=== PATIENT | male | born 1975 | race Caucasian/White ===

== ENCOUNTER 2019-06-24 15:04 | Inpatient (IN) ==
[2019-06-24] MEDS ORDERED: Ipratropium/Albuterol Neb 3 ML IH ONE (15:21)
[2019-06-24] MEDS ORDERED: methylPREDNISolone 125 MG/2 ML VIAL IVP ONE (15:21)
[2019-06-24] MEDS: 0.9 % Sodium Chloride 1,000 ML IVC SCH ×4 (15:44→19:59)
[2019-06-24 15:58] LABS: Basophils # 0.1 K/mcL (0.0-0.2); Basophils % 1.3 %; Eosinophils % 0.5 %; Hematocrit 46.7 % (37.5-50.1); Immature Granulocytes % 2.8 % (0-4); Lymphocytes # 0.8 K/mcL (0.6-4.6); Lymphocytes % 13.1 %; Mean Corpuscular HGB Conc 30.4 g/dL (31.6-35.5); Mean Corpuscular Hemoglobin 28.8 pg (28.0-33.3); Mean Corpuscular Volume 94.7 fL (83.0-100.0); Mean Platelet Volume 9.5 fL (9.4-12.4); Monocytes # 0.4 K/mcL (0.0-1.3); Neutrophils # 4.6 K/mcL (1.6-8.9); Platelet Count 190 K/mcL (140-400); Red Blood Count 4.93 M/mcL (4.19-5.50); Segmented Neutrophils % 75.3 %; White Blood Count 6.2 K/mcL (4.3-11.1)
[2019-06-24 15:59] LABS: Hemoglobin 14.2 g/dL (12.9-16.9)
[2019-06-24 16:02] LABS: VBG HCO3 15 mEq/L (21-27); VBG PCO2 48 mmHg (41-51); VBG PH 7.11 pH Units (7.32-7.42); VBG PO2 46 mmHg (25-50)
[2019-06-24] MEDS ORDERED: Isovue-370 500 ML BOTTLE IVP ONE (16:04)
[2019-06-24 16:18] LABS: Magnesium 2.4 mg/dL (1.6-2.6)
[2019-06-24 16:20] LABS: Troponin I < 0.03 ng/mL (< 0.04)
[2019-06-24 17:07] LABS: BUN/Creatinine Ratio 8 (6-26); Blood Urea Nitrogen 16 mg/dL (6-20); Calcium 10.2 mg/dL (8.6-10.3); Carbon Dioxide 13 mEq/L (23-29); Chloride 91 mEq/L (98-107); Glucose 700 mg/dL (70-105); Osmolality,Calculated 309 (280-300); Potassium 6.9 mEq/L (3.5-5.1); Sodium 132 mEq/L (136-145); eGFR For African Americans 42 (> 60); eGFR For Non-African Americans 34 (> 60)
[2019-06-24] MEDS ORDERED: D5% in 0.45% NACL w KCl 20 MEQ/1,000 ML MLS IVC PRN (17:14)
[2019-06-24] MEDS ORDERED: *HR* Dextrose 50 % in Water (Syg) 50 ML SYRINGE IVP PRN ×2 (17:14→20:59)
[2019-06-24] MEDS ORDERED: Insulin Human Regular 100 UNIT in 0.9 % Sodium Chloride 100 ML IVC SCH (17:15)
[2019-06-24] MEDS ORDERED: cefTRIAXone 1,000 MG in Water for inj. (sterile) 10 ML IVP ONE (17:47)
[2019-06-24] MEDS ORDERED: Azithromycin 500 MG in D5% in Water 250 ML IVPB ONE (17:47)
--- NOTE | 2019-06-24 18:06 | Emergency Department Note ---
Disposition Clinical Impression: Septic shock DKA (diabetic ketoacidoses) Qualifiers: Diabetes mellitus type: other specified (including ANDREW) Diabetes mellitus complication detail: without coma Qualified Code(s): E13.10 - Other specified diabetes mellitus with ketoacidosis without coma Disposition: Admitted As Inpatient Condition: Good Time of Disposition: 17:30 General Adult HPI - General Chief complaint: ED Altered Mental Status Stated complaint: Hypergylcemia Time Seen by Provider: 06/24/19 15:06 Source: EMS Limitations: altered mental status Nursing Notes Reviewed: Yes Vital Signs Reviewed: Yes - History of Present Illness Pain Scale: 0 - Related Data Home Medications Medication Instructions Recorded Confirmed Acetaminophen [Non-Aspirin] 650 mg PO Q4H PRN 03/12/19 03/12/19 BuPROPion SR (12 HR) [Wellbutrin 150 mg PO TID 03/12/19 03/12/19 SR] DULoxetine [Cymbalta] 30 mg PO DAILY 03/12/19 03/12/19 Enoxaparin [Lovenox] 40 mg SQ DAILY 03/12/19 03/12/19 Loperamide [Imodium] 2 mg PO Q4HR PRN 03/12/19 03/12/19 Magnesium Hydroxide [Milk of 2,400 mg PO DAILY PRN 03/12/19 03/12/19 Magnesia] hydrOXYzine HCl [Hydroxyzine HCl] 25 mg PO Q8H PRN 03/12/19 03/12/19 Previous Rx's Medication Instructions Recorded Daptomycin [Cubicin Rf] 500 mg IV DAILY #20 vial 04/10/19 Insulin DETEMIR [Levemir] 15 unit SQ QAM [id number] 04/10/19 Insulin LISPRO [HumaLOG] 10 units SQ Q4HR vial 04/10/19 Ipratropium/Albuterol Neb [Duoneb] 3 ml IH [id number] PRN inhsol 04/10/19 Lactulose 10 gm GTUBE BID udc 04/10/19 Lansoprazole [Prevacid] 30 mg GTUBE QAM capsule. 04/10/19 Metoclopramide [Reglan] 5 mg GTUBE Q6HR ud.liq 04/10/19 Ondansetron [Zofran] 4 mg IVP Q6H PRN vial 04/10/19 Sennosides/Docusate Sodium [Senna 1 each GTUBE BID tablet 04/10/19 Plus] Allergies Allergy/AdvReac Type Severity Reaction Status Date / Time No Known Allergies Allergy Verified 03/11/19 19:43 Past Medical History - Past Medical History Medical history: Reports: diabetes, other Surgical history: Reports: other (Lower extremity abscess and prolonged infection with delayed closure and split thickness skin graft) Psychiatric history: Reports: anxiety, depression - Social History Smoking Status: Current every day smoker Smokeless Tobacco Status: No Alcohol use: Reports: none Drug use: 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, methamphetamine, IV Drug Use, prescription drug abu se Physical Exam - General Limitations: altered mental status General appearance: lethargic Course Vital Signs Temperature 98.7 F 06/24/19 15:17 Pulse Rate 112 06/24/19 15:17 Respiratory Rate 13 06/24/19 15:17 Blood Pressure 79/50 06/24/19 15:17 O2 Sat by Pulse Oximetry 87 06/24/19 15:17 Temperature 98.7 F 06/24/19 15:17 Pulse Rate 107 06/24/19 19:32 Respiratory Rate 14 06/24/19 19:32 Blood Pressure 120/86 06/24/19 19:32 O2 Sat by Pulse Oximetry 97 06/24/19 19:32 Oxygen Delivery Oxygen Delivery Room Air Medical Decision Making - MDM Narrative Medical decision making narrative: 57-year-old male presents to the emergency department with concern for hyperglycemia. Patient has elevated glucose. He is in diabetic ketoacidosis. pH 7.11. Patient received 3 L of fluids here in the emergency department. Did have an elevated potassium of 6.9, but no evidence of peaked T waves. Patient was given DuoNeb treatments as well as steroids as he is a possible COPD patient. He had evidence of pneumonia on a CT angiogram of the chest. Patient was given Rocephin and azithromycin for this. Patient's initial lactic acid was 5.8. Repeat lactic acid pending at time of admission. Blood Cultures were obtained. Patient was started on insulin drip. Patient's kidney function about his baseline. Dr. Acosta requested that we continue maintenance fluids at 250 mL per hour. This was initiated. Repeat potassium was much less as patient went to the floor. Anion gap was 24. Chest X-Ray 06/24/19 15:10 IMPRESSION: No acute process. D/ / Paulie Hurst MD / Paulie Hurst MD Interpreting Provider: Paulie Hurst MD Chest CTA 06/24/19 16:04 IMPRESSION: 1. No evidence of acute pulmonary embolism or acute aortic disease. 2. Suggestion of patchy infiltrates in the right upper lobe consistent with pneumonia. 3. Bronchiectatic changes worse in the left lower lobe as well as some nodularity likely related to bronchiectasis. 4. Changes of hepatic steatosis and liver cirrhosis. D/ / 06/24/2019 17:33:40 Gwen Chaves MD / ninortori Interpreting Provider: Gwen Chaves MD - Lab Data Result diagrams: 06/24/19 15:10 06/24/19 18:16 Lab Results 06/24/19 06/24/19 06/24/19 Range/Units 15:10 15:10 15:10 WBC 6.2 (4.3-11.1) K/mcL RBC 4.93 (4.19-5.50) M/mcL Hgb 14.2 D (12.9-16.9) g/dL Hct 46.7 (37.5-50.1) % MCV 94.7 (83.0-100.0) fL MCH 28.8 (28.0-33.3) pg MCHC 30.4 L (31.6-35.5) g/dL RDW 16.0 H (11.5-14.5) % Plt Count 190 D (140-400) K/mcL MPV 9.5 (9.4-12.4) fL Immature Gran % 2.8 (0-4) % Seg Neutrophils % 75.3 % Lymphocytes % 13.1 % Monocytes % 7.0 % Eosinophils % 0.5 % Basophils % 1.3 % Neutrophils # 4.6 (1.6-8.9) K/mcL Lymphocytes # 0.8 (0.6-4.6) K/mcL Monocytes # 0.4 (0.0-1.3) K/mcL Eosinophils # 0.0 (0.0-0.6) K/mcL Basophils # 0.1 (0.0-0.2) K/mcL VBG pH (7.32-7.42) pH Units VBG pCO2 (41-51) mmHg VBG pO2 (25-50) mmHg VBG HCO3 (21-27) mEq/L Sodium 132 L (136-145) mEq/L Potassium 6.9 H* (3.5-5.1) mEq/L Chloride 91 L (98-107) mEq/L Carbon Dioxide 13 L (23-29) mEq/L BUN 16 (6-20) mg/dL Creatinine 2.10 H (0.70-1.30) mg/dL Est GFR ( Amer) 42 L (> 60) Est GFR (Non-Af Amer) 34 L (> 60) BUN/Creatinine Ratio 8 (6-26) Glucose 700 H* (70-105) mg/dL POC Glucose (70-99) mg/dL Calculated Osmolality 309 H (280-300) Lactic Acid (0.5-2.2) mmol/L Calcium 10.2 (8.6-10.3) mg/dL Magnesium 2.4 (1.6-2.6) mg/dL Troponin I < 0.03 (< 0.04) ng/mL Beta-Hydroxybutyric Acd > 2.00 H (0.02-0.27) mmol/L Person Notif of Crit 06/24/19 06/24/19 06/24/19 Range/Units 15:18 15:20 15:42 WBC (4.3-11.1) K/mcL RBC (4.19-5.50) M/mcL Hgb (12.9-16.9) g/dL Hct (37.5-50.1) % MCV (83.0-100.0) fL MCH (28.0-33.3) pg MCHC (31.6-35.5) g/dL RDW (11.5-14.5) % Plt Count (140-400) K/mcL MPV (9.4-12.4) fL Immature Gran % (0-4) % Seg Neutrophils % % Lymphocytes % % Monocytes % % Eosinophils % % Basophils % % Neutrophils # (1.6-8.9) K/mcL Lymphocytes # (0.6-4.6) K/mcL Monocytes # (0.0-1.3) K/mcL Eosinophils # (0.0-0.6) K/mcL Basophils # (0.0-0.2) K/mcL VBG pH (7.32-7.42) pH Units VBG pCO2 (41-51) mmHg VBG pO2 (25-50) mmHg VBG HCO3 (21-27) mEq/L Sodium (136-145) mEq/L Potassium (3.5-5.1) mEq/L Chloride (98-107) mEq/L Carbon Dioxide (23-29) mEq/L BUN (6-20) mg/dL Creatinine (0.70-1.30) mg/dL Est GFR ( Amer) (> 60) Est GFR (Non-Af Amer) (> 60) BUN/Creatinine Ratio (6-26) Glucose (70-105) mg/dL POC Glucose > 600 H* 596 H* (70-99) mg/dL Calculated Osmolality (280-300) Lactic Acid 5.8 H* (0.5-2.2) mmol/L Calcium (8.6-10.3) mg/dL Magnesium (1.6-2.6) mg/dL Troponin I (< 0.04) ng/mL Beta-Hydroxybutyric Acd (0.02-0.27) mmol/L Person Notif of Crit 06/24/19 06/24/19 06/24/19 Range/Units 15:56 18:16 19:20 WBC (4.3-11.1) K/mcL RBC (4.19-5.50) M/mcL Hgb (12.9-16.9) g/dL Hct (37.5-50.1) % MCV (83.0-100.0) fL MCH (28.0-33.3) pg MCHC (31.6-35.5) g/dL RDW (11.5-14.5) % Plt Count (140-400) K/mcL MPV (9.4-12.4) fL Immature Gran % (0-4) % Seg Neutrophils % % Lymphocytes % % Monocytes % % Eosinophils % % Basophils % % Neutrophils # (1.6-8.9) K/mcL Lymphocytes # (0.6-4.6) K/mcL Monocytes # (0.0-1.3) K/mcL Eosinophils # (0.0-0.6) K/mcL Basophils # (0.0-0.2) K/mcL VBG pH 7.11 L* (7.32-7.42) pH Units VBG pCO2 48 (41-51) mmHg VBG pO2 46 (25-50) mmHg VBG HCO3 15 L (21-27) mEq/L Sodium 134 L (136-145) mEq/L Potassium 5.7 H (3.5-5.1) mEq/L Chloride 97 L (98-107) mEq/L Carbon Dioxide 13 L (23-29) mEq/L BUN 19 (6-20) mg/dL Creatinine 1.98 H (0.70-1.30) mg/dL Est GFR ( Amer) 45 L (> 60) Est GFR (Non-Af Amer) 37 L (> 60) BUN/Creatinine Ratio 10 (6-26) Glucose 701 H* (70-105) mg/dL POC Glucose 494 H* (70-99) mg/dL Calculated Osmolality 314 H (280-300) Lactic Acid (0.5-2.2) mmol/L Calcium 8.8 (8.6-10.3) mg/dL Magnesium (1.6-2.6) mg/dL Troponin I (< 0.04) ng/mL Beta-Hydroxybutyric Acd (0.02-0.27) mmol/L Person Notif of Dianelys CHATO MELARACLIFFORD 06/24/19 Range/Units 19:22 WBC (4.3-11.1) K/mcL RBC (4.19-5.50) M/mcL Hgb (12.9-16.9) g/dL Hct (37.5-50.1) % MCV (83.0-100.0) fL MCH (28.0-33.3) pg MCHC (31.6-35.5) g/dL RDW (11.5-14.5) % Plt Count (140-400) K/mcL MPV (9.4-12.4) fL Immature Gran % (0-4) % Seg Neutrophils % % Lymphocytes % % Monocytes % % Eosinophils % % Basophils % % Neutrophils # (1.6-8.9) K/mcL Lymphocytes # (0.6-4.6) K/mcL Monocytes # (0.0-1.3) K/mcL Eosinophils # (0.0-0.6) K/mcL Basophils # (0.0-0.2) K/mcL VBG pH (7.32-7.42) pH Units VBG pCO2 (41-51) mmHg VBG pO2 (25-50) mmHg VBG HCO3 (21-27) mEq/L Sodium (136-145) mEq/L Potassium (3.5-5.1) mEq/L Chloride (98-107) mEq/L Carbon Dioxide (23-29) mEq/L BUN (6-20) mg/dL Creatinine (0.70-1.30) mg/dL Est GFR ( Amer) (> 60) Est GFR (Non-Af Amer) (> 60) BUN/Creatinine Ratio (6-26) Glucose (70-105) mg/dL POC Glucose 540 H* (70-99) mg/dL Calculated Osmolality (280-300) Lactic Acid (0.5-2.2) mmol/L Calcium (8.6-10.3) mg/dL Magnesium (1.6-2.6) mg/dL Troponin I (< 0.04) ng/mL Beta-Hydroxybutyric Acd (0.02-0.27) mmol/L Person Notif of Crit
[2019-06-24] MEDS ORDERED: Azithromycin 250 MG TABLET PO ONE (18:28)
--- NOTE | 2019-06-24 18:37 | Emergency Department Note ---
Disposition Clinical Impression: Septic shock DKA (diabetic ketoacidoses) Qualifiers: Diabetes mellitus type: other specified (including ANDREW) Diabetes mellitus complication detail: without coma Qualified Code(s): E13.10 - Other specified diabetes mellitus with ketoacidosis without coma Disposition: Admitted As Inpatient Condition: Good Referrals: NONE,PCP [Primary Care Provider] - Forms: ED Satisfaction Letter Time of Disposition: 18:38 General Adult HPI - General Chief complaint: ED Altered Mental Status Stated complaint: Hypergylcemia Time Seen by Provider: 06/24/19 15:06 Source: EMS Limitations: altered mental status - History of Present Illness Pain Scale: 0 - Related Data Home Medications Medication Instructions Recorded Confirmed Acetaminophen [Non-Aspirin] 650 mg PO Q4H PRN 03/12/19 03/12/19 BuPROPion SR (12 HR) [Wellbutrin 150 mg PO TID 03/12/19 03/12/19 SR] DULoxetine [Cymbalta] 30 mg PO DAILY 03/12/19 03/12/19 Enoxaparin [Lovenox] 40 mg SQ DAILY 03/12/19 03/12/19 Loperamide [Imodium] 2 mg PO Q4HR PRN 03/12/19 03/12/19 Magnesium Hydroxide [Milk of 2,400 mg PO DAILY PRN 03/12/19 03/12/19 Magnesia] hydrOXYzine HCl [Hydroxyzine HCl] 25 mg PO Q8H PRN 03/12/19 03/12/19 Previous Rx's Medication Instructions Recorded Daptomycin [Cubicin Rf] 500 mg IV DAILY #20 vial 04/10/19 Insulin DETEMIR [Levemir] 15 unit SQ QAM [id number] 04/10/19 Insulin LISPRO [HumaLOG] 10 units SQ Q4HR vial 04/10/19 Ipratropium/Albuterol Neb [Duoneb] 3 ml IH [id number] PRN inhsol 04/10/19 Lactulose 10 gm GTUBE BID udc 04/10/19 Lansoprazole [Prevacid] 30 mg GTUBE QAM capsule. 04/10/19 Metoclopramide [Reglan] 5 mg GTUBE Q6HR ud.liq 04/10/19 Ondansetron [Zofran] 4 mg IVP Q6H PRN vial 04/10/19 Sennosides/Docusate Sodium [Senna 1 each GTUBE BID tablet 04/10/19 Plus] Allergies Allergy/AdvReac Type Severity Reaction Status Date / Time No Known Allergies Allergy Verified 03/11/19 19:43 Past Medical History - Past Medical History Medical history: Reports: diabetes, other Surgical history: Reports: other (Lower extremity abscess and prolonged infection with delayed closure and split thickness skin graft) Psychiatric history: Reports: anxiety, depression - Social History Smoking Status: Current every day smoker Smokeless Tobacco Status: No Alcohol use: Reports: none Drug use: 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, methamphetamine, IV Drug Use, prescription drug abuse Physical Exam - General Limitations: altered mental status General appearance: lethargic Course Vital Signs Temperature 98.7 F 06/24/19 15:17 Pulse Rate 112 06/24/19 15:17 Respiratory Rate 13 06/24/19 15:17 Blood Pressure 79/50 06/24/19 15:17 O2 Sat by Pulse Oximetry 87 06/24/19 15:17 Temperature 98.7 F 06/24/19 15:17 Pulse Rate 118 06/24/19 16:31 Respiratory Rate 12 06/24/19 16:31 Blood Pressure 94/59 06/24/19 16:31 O2 Sat by Pulse Oximetry 99 06/24/19 16:31 Oxygen Delivery Oxygen Delivery Nasal Cannula Medical Decision Making - Lab Data Result diagrams: 06/24/19 15:10 06/24/19 15:10 Lab Results 06/24/19 06/24/19 06/24/19 Range/Units 15:10 15:10 15:10 WBC 6.2 (4.3-11.1) K/mcL RBC 4.93 (4.19-5.50) M/mcL Hgb 14.2 D (12.9-16.9) g/dL Hct 46.7 (37.5-50.1) % MCV 94.7 (83.0-100.0) fL MCH 28.8 (28.0-33.3) pg MCHC 30.4 L (31.6-35.5) g/dL RDW 16.0 H (11.5-14.5) % Plt Count 190 D (140-400) K/mcL MPV 9.5 (9.4-12.4) fL Immature Gran % 2.8 (0-4) % Seg Neutrophils % 75.3 % Lymphocytes % 13.1 % Monocytes % 7.0 % Eosinophils % 0.5 % Basophils % 1.3 % Neutrophils # 4.6 (1.6-8.9) K/mcL Lymphocytes # 0.8 (0.6-4.6) K/mcL Monocytes # 0.4 (0.0-1.3) K/mcL Eosinophils # 0.0 (0.0-0.6) K/mcL Basophils # 0.1 (0.0-0.2) K/mcL VBG pH (7.32-7.42) pH Units VBG pCO2 (41-51) mmHg VBG pO2 (25-50) mmHg VBG HCO3 (21-27) mEq/L Sodium 132 L (136-145) mEq/L Potassium 6.9 H* (3.5-5.1) mEq/L Chloride 91 L (98-107) mEq/L Carbon Dioxide 13 L (23-29) mEq/L BUN 16 (6-20) mg/dL Creatinine 2.10 H (0.70-1.30) mg/dL Est GFR ( Amer) 42 L (> 60) Est GFR (Non-Af Amer) 34 L (> 60) BUN/Creatinine Ratio 8 (6-26) Glucose 700 H* (70-105) mg/dL POC Glucose (70-99) mg/dL Calculated Osmolality 309 H (280-300) Lactic Acid (0.5-2.2) mmol/L Calcium 10.2 (8.6-10.3) mg/dL Magnesium 2.4 (1.6-2.6) mg/dL Troponin I < 0.03 (< 0.04) ng/mL Beta-Hydroxybutyric Acd > 2.00 H (0.02-0.27) mmol/L Person Notif of Crit 06/24/19 06/24/19 06/24/19 Range/Units 15:18 15:20 15:42 WBC (4.3-11.1) K/mcL RBC (4.19-5.50) M/mcL Hgb (12.9-16.9) g/dL Hct (37.5-50.1) % MCV (83.0-100.0) fL MCH (28.0-33.3) pg MCHC (31.6-35.5) g/dL RDW (11.5-14.5) % Plt Count (140-400) K/mcL MPV (9.4-12.4) fL Immature Gran % (0-4) % Seg Neutrophils % % Lymphocytes % % Monocytes % % Eosinophils % % Basophils % % Neutrophils # (1.6-8.9) K/mcL Lymphocytes # (0.6-4.6) K/mcL Monocytes # (0.0-1.3) K/mcL Eosinophils # (0.0-0.6) K/mcL Basophils # (0.0-0.2) K/mcL VBG pH (7.32-7.42) pH Units VBG pCO2 (41-51) mmHg VBG pO2 (25-50) mmHg VBG HCO3 (21-27) mEq/L Sodium (136-145) mEq/L Potassium (3.5-5.1) mEq/L Chloride (98-107) mEq/L Carbon Dioxide (23-29) mEq/L BUN (6-20) mg/dL Creatinine (0.70-1.30) mg/dL Est GFR ( Amer) (> 60) Est GFR (Non-Af Amer) (> 60) BUN/Creatinine Ratio (6-26) Glucose (70-105) mg/dL POC Glucose > 600 H* 596 H* (70-99) mg/dL Calculated Osmolality (280-300) Lactic Acid 5.8 H* (0.5-2.2) mmol/L Calcium (8.6-10.3) mg/dL Magnesium (1.6-2.6) mg/dL Troponin I (< 0.04) ng/mL Beta-Hydroxybutyric Acd (0.02-0.27) mmol/L [facility] 06/24/19 Range/Units 15:56 WBC (4.3-11.1) K/mcL RBC (4.19-5.50) M/mcL Hgb (12.9-16.9) g/dL Hct (37.5-50.1) % MCV (83.0-100.0) fL MCH (28.0-33.3) pg MCHC (31.6-35.5) g/dL RDW (11.5-14.5) % Plt Count (140-400) K/mcL MPV (9.4-12.4) fL Immature Gran % (0-4) % Seg Neutrophils % % Lymphocytes % % Monocytes % % Eosinophils % % Basophils % % Neutrophils # (1.6-8.9) K/mcL Lymphocytes # (0.6-4.6) K/mcL Monocytes # (0.0-1.3) K/mcL Eosinophils # (0.0-0.6) K/mcL Basophils # (0.0-0.2) K/mcL VBG pH 7.11 L* (7.32-7.42) pH Units VBG pCO2 48 (41-51) mmHg VBG pO2 46 (25-50) mmHg VBG HCO3 15 L (21-27) mEq/L Sodium (136-145) mEq/L Potassium (3.5-5.1) mEq/L Chloride (98-107) mEq/L Carbon Dioxide (23-29) mEq/L BUN (6-20) mg/dL Creatinine (0.70-1.30) mg/dL Est GFR ( Amer) (> 60) Est GFR (Non-Af Amer) (> 60) BUN/Creatinine Ratio (6-26) Glucose (70-105) mg/dL POC Glucose (70-99) mg/dL Calculated Osmolality (280-300) Lactic Acid (0.5-2.2) mmol/L Calcium (8.6-10.3) mg/dL Magnesium (1.6-2.6) mg/dL Troponin I (< 0.04) ng/mL Beta-Hydroxybutyric Acd (0.02-0.27) mmol/L Person Notif of Dianelys CLIFFORD Attestation Statement - Attestation Attestation: I reviewed the residents documentation and agree with the residents assessment and plan of care. I have personally had face to face time with the patient. (Brief History, Brief Exam, and MDM) I personally supervised and was present for the weathers/critical portions of the following procedures completed by the resident: EKG 43 year old male presents to the ED with complaints of hyperglycemia and has a history of DKA. Rajinder appers to be in DKA again today likely secondary to sepsis with pneumonia. Patinet is hyperkalemic likely secondary to be in DKA. We will be trearting him with albuterol, insulin drip and IVF. Patient will have his potassium rechecked. He does not have any EKG changes secondary to his hyperkalmiea. Rajinder will be admitted to ICU.
[2019-06-24 19:10] LABS: Calcium 8.8 mg/dL (8.6-10.3); Potassium 5.7 mEq/L (3.5-5.1)
[2019-06-24] MEDS ORDERED: Insulin Regular, Human 100 UNIT/ML IV PRN (20:59)
[2019-06-24] MEDS ORDERED: Naloxone 0.4 MG/ML INJ IVP PRN (20:59)
[2019-06-24] MEDS ORDERED: Ondansetron 4 MG/2 ML VIAL IVP PRN (21:07)
[2019-06-24] MEDS: 0.45 % Sodium Chloride w/KCl 20 MEQ/1,000 ML MLS IVC SCH (21:13)
[2019-06-24] MEDS ORDERED: Albuterol 2.5 MG/3 ML NEBULIZER IH PRN (21:19)
[2019-06-24] MEDS ORDERED: Vancomycin (wt based) 1,000 MG VIAL IVPB SCH (22:00)
[2019-06-24 22:06] LABS: Calcium 8.6 mg/dL (8.6-10.3); Magnesium 1.9 mg/dL (1.6-2.6); Phosphorous 4.2 mg/dL (2.7-4.5); Potassium 4.4 mEq/L (3.5-5.1)
[2019-06-24 22:21] LABS: Bilirubin,Urine Small (Negative); Blood,Urine Negative (Negative); Clarity,Urine Clear (Clear); Color,Urine Yellow (Yellow); Glucose,Urine (UA) >=1000 mg/dL (Normal); Ketones,Urine 40 mg/dL (Negative); Leukocyte Esterase,Urine Negative (Negative); Nitrite,Urine Negative (Negative); Protein,Urine 30 mg/dL (Neg-Trace); Specific Gravity,Urine > 1.030 (1.010-1.025)
[2019-06-24] MEDS: *HR* Heparin 5,000 UNIT/ML VIAL SQ SCH (22:22)
[2019-06-24 22:25] LABS: Bacteria,Urine None Seen per hpf (None-Few); Hyaline Casts,Urine None Seen per lpf (None-Few); RBC,Urine 0-3 per hpf (0-3); Squamous Epithelial Cell,Urine Few per lpf (None-Few); WBC,Urine 0-3 per hpf (0-3)
[2019-06-24 22:26] LABS: Prothrombin Time 11.2 Seconds (9.4-12.1)
[2019-06-24 22:28] LABS: Activated Partial Thrombo Time 27.5 Seconds (26.0-36.0)
[2019-06-24 22:30] LABS: Amphetamine Screen,Urine Negative ng/mL (Cutoff=1000); Barbiturate Screen,Urine Negative ng/mL (Cutoff=200); Benzodiazepines Screen,Urine Negative ng/mL (Cutoff=200); Cannabinoid Screen,Urine Negative ng/mL (Cutoff = 50); Cocaine Screen,Urine Negative ng/mL (Cutoff= 300); Opiate Screen,Urine Negative ng/mL (Cutoff=300); Phencyclidine Screen,Urine Negative ng/mL (Cutoff=25)
[2019-06-24] MEDS: 0.45 % Sodium Chloride w/KCl 20 MEQ/1,000 ML MLS IVC PRN (22:40)
[2019-06-24] MEDS: Piperacillin/Tazobactam 3.375 GM in 0.9 % Sodium Chloride Mini Bag 100 ML IVPB SCH (23:16)
[2019-06-24] MEDS: Ipratropium/Albuterol Neb 3 ML IH SCH (23:54)
--- NOTE | 2019-06-25 00:33 | Internal Med History&Physical ---
Date of Encounter: 06/24/19 Time of Encounter: 20:30 Internal Medicine - H&P: HPI Chief complaint: high glucose; weakness; depressed LOC Admitted From: Emergency Dept Plans for Post Hospital Care: Home History of present illness: Mr. Anand is a 43 year old male who presents to the ER tonight with complaints of high glucose, somnolence, nausea, and vomiting. He was found to have evidence of DKA in the ER. He was fluid resuscitated and started on insulin drip. He was then admitted to hospitalist service. He did have CTA imaging of his chest which revealed no PE but he did have significant findings of right upper lobe pneumonia. He was started on antibiotics and had blood cultures drawn. Of note, his initial lactate was 5.8. Upon my assessment of the patient, patient appears ill and somnolent. He is easily arousable and protecting his airway. He is unable to provide much history other than protracted nausea, vomiting, and "pain all over". Most of the information is obtained from my discussions with the ER staff and old records. Past Med Surg Social Fam HX - Past Medical History Source: old records reviewed, other (ER notes/discussions) Medical history: diabetes, other Additional medical history: osteomyelitis. dysphagia Psychiatric history: anxiety, depression - Past Surgical History Surgical History: other (Lower extremity abscess and prolonged infection with delayed closure and split thickness skin graft) Additional surgical history: surgical intervention for abscesses,feeding tube - Social History Smoking Status: Current every day smoker Smokeless Tobacco Status: No Alcohol use: none Drug use: opiates, methamphetamine, IV Drug Use, prescription drug abuse - Family History Mother History Unknown: Yes Father History Unknown: Yes Internal Medicine - H&P: Meds Acetaminophen [Non-Aspirin] 650 mg PO Q4H PRN 03/12/19 [History] BuPROPion SR (12 HR) [Wellbutrin SR] 150 mg PO TID 03/12/19 [History] DULoxetine [Cymbalta] 30 mg PO DAILY 03/12/19 [History] Enoxaparin [Lovenox] 40 mg SQ DAILY 03/12/19 [History] Loperamide [Imodium] 2 mg PO Q4HR PRN 03/12/19 [History] Magnesium Hydroxide [Milk of Magnesia] 2,400 mg PO DAILY PRN 03/12/19 [History] hydrOXYzine HCl [Hydroxyzine HCl] 25 mg PO Q8H PRN 03/12/19 [History] Daptomycin [Cubicin Rf] 500 mg IV DAILY #20 vial 04/10/19 [Rx] Insulin DETEMIR [Levemir] 15 unit SQ QAM [id number] 04/10/19 [Rx] Insulin LISPRO [HumaLOG] 10 units SQ Q4HR vial 04/10/19 [Rx] Ipratropium/Albuterol Neb [Duoneb] 3 ml IH [id number] PRN inhsol 04/10/19 [Rx] Lactulose 10 gm GTUBE BID udc 04/10/19 [Rx] Lansoprazole [Prevacid] 30 mg GTUBE QAM capsule. 04/10/19 [Rx] Metoclopramide [Reglan] 5 mg GTUBE Q6HR ud.liq 04/10/19 [Rx] Ondansetron [Zofran] 4 mg IVP Q6H PRN vial 04/10/19 [Rx] Sennosides/Docusate Sodium [Senna Plus] 1 each GTUBE BID tablet 04/10/19 [Rx] Allergy/AdvReac Type Severity Reaction Status Date / Time No Known Allergies Allergy Verified 03/11/19 19:43 ROS unobtainable: due to mental status - Constitutional Vitals: Temp Pulse Resp BP Pulse Ox 97.6 F 87 18 141/87 96 06/24/19 23:07 06/24/19 23:07 06/24/19 23:07 06/24/19 23:07 06/24/19 23:07 General appearance: Present: A&O X 0, disheveled, mild distress. Absent: answers questions appropriately Exam: ill-appearing; arouasble; protecting airway - Head Head exam: Present: atraumatic, normal inspection - Eye Eye exam: Present: EOMI, PERRL. Absent: scleral icterus - ENT ENT exam: Present: mucous membranes dry, normal exam, normal oropharynx - Neck Neck exam general surgery: Present: full ROM, supple, trachea midline. Absent: lymphadenopathy, tenderness, nuchal rigidity, thyromegaly - Respiratory Respiratory exam: Present: CTAB. Absent: chest wall tenderness, rales, rhonchi, wheezes - Cardiovascular Cardiovascular exam: Present: distant heart sounds, +S1, +S2, systolic murmur, tachycardia. Absent: diastolic murmur - GI/Abdominal GI/Abdominal exam: Present: hypoactive bowel sounds, soft. Absent: guarding, hepatomegaly, mass, rebound, splenomegaly, tenderness - Extremities Exam Extremities exam: Present: warm, radial pulses palpable and symmetrical. Absent: calf tenderness, joint swelling, pedal edema, tenderness - Back Exam Back exam: Absent: CVA tenderness (L), CVA tenderness (R) - Neurological Exam Neurological exam: Absent: alert (somnolent but easily arouasable) Additional comments: moves all four extremities; responds appropriately to pain and verbal stimuli - Psychiatric Psychiatric exam: Present: flat affect - Skin Skin exam: Present: dry, intact, warm Internal Med - H&P Results - Labs CBC & Chem 7: 06/24/19 15:10 06/24/19 21:28 Labs: Short CBC 06/24/19 Range/Units 15:10 WBC 6.2 (4.3-11.1) K/mcL Hgb 14.2 D (12.9-16.9) g/dL Hct 46.7 (37.5-50.1) % Plt Count 190 D (140-400) K/mcL Neutrophils # 4.6 (1.6-8.9) K/mcL BMP 06/24/19 06/24/19 06/24/19 15:10 18:16 21:28 Sodium 132 L 134 L 136 Potassium 6.9 H* 5.7 H 4.4 Chloride 91 L 97 L 99 Carbon Dioxide 13 L 13 L 18 L BUN 16 19 18 Creatinine 2.10 H 1.98 H 1.82 H Glucose 700 H* 701 H* 435 H Calcium 10.2 8.8 8.6 Cardiac Enzymes 06/24/19 Range/Units 15:10 Troponin I < 0.03 (< 0.04) ng/mL Urine 06/24/19 Range/Units 22:00 Urine Color Yellow (Yellow) Urine Clarity Clear (Clear) Urine pH 6.0 (5.0-8.0) pH Units Ur Specific [place] > 1.030 H (1.010-1.025) Urine Protein 30 H (Neg-Trace) mg/dL Urine Glucose (UA) >=1000 H (Normal) mg/dL - ABG Interpretation ABG results: 06/24/19 15:56 VBG pH 7.11 L* VBG pCO2 48 VBG pO2 46 VBG HCO3 15 L - EKG Data -: EKG Interpreted by Myself - EKG Data Prior EKG available for review: no EKG comments: 06/25/19 00:40 Sinus tachycardia; YARITZA - Impressions ITS Impressions Chest X-Ray 06/24/19 15:10 IMPRESSION: No acute process. D/ / Paulie Hurst MD / Paulie Hurst MD Interpreting Provider: Paulie Hurst MD Chest CTA 06/24/19 16:04 IMPRESSION: 1. No evidence of acute pulmonary embolism or acute aortic disease. 2. Suggestion of patchy infiltrates in the right upper lobe consistent with pneumonia. 3. Bronchiectatic changes worse in the left lower lobe as well as some nodularity likely related to bronchiectasis. 4. Changes of hepatic steatosis and liver cirrhosis. D/ / 06/24/2019 17:33:40 Gwen Chaves MD / bcartori Interpreting Provider: Gwen Chaves MD - Diagnostic Studies Chest x-ray Status: image reviewed by me (negative) - Assessment and Plan (1) DKA (diabetic ketoacidoses) Current Visit: Yes Status: Acute Assessment and plan: 1. Continue IVF and insulin drip per DKA protocol. 2. NPO until anion gap is closed and patient is fully awake. 3. Monitor and correct electrolytes closely. 4. Patient received IVF boluses in ER. 5. Monitor I/O. Qualifiers: Diabetes mellitus type: type 1 Diabetes mellitus complication detail: wit hout coma Qualified Code(s): E10.10 - Type 1 diabetes mellitus with ketoa cidosis without coma (2) Right upper lobe pneumonia Current Visit: Yes Status: Acute Assessment and plan: 1. Blood cultures obtained. 2. Sputum culture if/when able to collect. 3. IV Vancomycin, Zosyn, and Levaquin ordered for HCAP/sepsis. 4. Supportive measures as necessary. 5. Monitor clinically. Qualifiers: Pneumonia type: due to unspecified organism Qualified Code(s): J18.1 - Lobar pneumonia, unspecified organism (3) Sepsis Current Visit: Yes Status: Acute Assessment and plan: 1. IVF and antibiotics as above. 2. Patient fluid resuscitated in ER. 3. Trend lactates. 4. Monitor clinically and on telemetry. Qualifiers: Sepsis type: sepsis due to unspecified organism Qualified Code(s): A41.9 - Sepsis, unspecified organism (4) Dysphagia Current Visit: Yes Status: Chronic Assessment and plan: 1. NPO. 2. Patient had PEG tube placed at last admission. 3. Consult nutrition for feeding tube guidance once DKA resolves. Qualifiers: Dysphagia type: unspecified Qualified Code(s): R13.10 - Dysphagia, unspecified (5) DVT prophylaxis Current Visit: Yes Status: Acute Assessment and plan: 1. Heparin SQ.
[2019-06-25 01:36] LABS: Eosinophils % 0.2 %; Hematocrit 37.8 % (37.5-50.1); Immature Granulocytes % 0.8 % (0-4); Lymphocytes # 0.6 K/mcL (0.6-4.6); Lymphocytes % 12.2 %; Mean Corpuscular HGB Conc 29.9 g/dL (31.6-35.5); Mean Corpuscular Hemoglobin 28.3 pg (28.0-33.3); Mean Corpuscular Volume 94.7 fL (83.0-100.0); Monocytes # 0.2 K/mcL (0.0-1.3); Monocytes % 3.5 %; Neutrophils # 4.3 K/mcL (1.6-8.9); Platelet Count 101 K/mcL (140-400); Red Blood Count 3.99 M/mcL (4.19-5.50); Red Cell Distribution Width 16.1 % (11.5-14.5); Segmented Neutrophils % 83.3 %; White Blood Count 5.2 K/mcL (4.3-11.1)
[2019-06-25 01:41] LABS: Hemoglobin 11.3 g/dL (12.9-16.9)
[2019-06-25 01:53] LABS: BUN/Creatinine Ratio 12 (6-26); Blood Urea Nitrogen 18 mg/dL (6-20); Calcium 8.2 mg/dL (8.6-10.3); Carbon Dioxide 18 mEq/L (23-29); Chloride 105 mEq/L (98-107); Glucose 287 mg/dL (70-105); Magnesium 1.9 mg/dL (1.6-2.6); Osmolality,Calculated 296 (280-300); Potassium 4.4 mEq/L (3.5-5.1); Sodium 137 mEq/L (136-145); eGFR For African Americans > 60 (> 60); eGFR For Non-African Americans 52 (> 60)
[2019-06-25] MEDS: 0.45 % Sodium Chloride w/KCl 20 MEQ/1,000 ML MLS IVC PRN (02:40)
[2019-06-25] MEDS ORDERED: Insulin Human Regular 100 UNIT in 0.9 % Sodium Chloride 100 ML IVC SCH (04:30)
[2019-06-25] MEDS: Ipratropium/Albuterol Neb 3 ML IH SCH ×2 (04:42→09:42)
[2019-06-25] MEDS: *HR* Heparin 5,000 UNIT/ML VIAL SQ SCH (05:35)
[2019-06-25] MEDS ORDERED: Pantoprazole 40 MG VIAL IVP SCH (06:00)
[2019-06-25 07:28] VITALS: BP 119/82
[2019-06-25 07:35] LABS: BUN/Creatinine Ratio 13 (6-26); Blood Urea Nitrogen 16 mg/dL (6-20); Calcium 7.9 mg/dL (8.6-10.3); Carbon Dioxide 22 mEq/L (23-29); Chloride 105 mEq/L (98-107); Glucose 248 mg/dL (70-105); Magnesium 1.7 mg/dL (1.6-2.6); Osmolality,Calculated 293 (280-300); Potassium 3.9 mEq/L (3.5-5.1); Sodium 137 mEq/L (136-145); eGFR For African Americans > 60 (> 60); eGFR For Non-African Americans > 60 (> 60)
[2019-06-25] MEDS ORDERED: Dextrose Gel 15 GM/37.5 ML TUBE PO PRN ×2 (08:41)
[2019-06-25] MEDS ORDERED: D5% in Water 1,000 ML IVC PRN (08:41)
[2019-06-25] MEDS ORDERED: Insulin DETEMIR 100 UNIT/ML X5UNITS SQ ONE (08:43)
[2019-06-25] MEDS ORDERED: Insulin LISPRO 300 UNITS/3 ML VIAL SQ SCH ×2 (08:44→11:30)
[2019-06-25] MEDS ORDERED: Azithromycin 500 MG in D5% in Water 250 ML IVPB SCH ×2 (09:00→20:00)
[2019-06-25] MEDS ORDERED: levoFLOXacin 750 MG/150 ML 750 MG/150 ML BAG IVPB SCH (09:00)
[2019-06-25] MEDS: Piperacillin/Tazobactam 3.375 GM in 0.9 % Sodium Chloride Mini Bag 100 ML IVPB SCH (09:18)
--- NOTE | 2019-06-25 09:24 | Event Note ---
Date of Encounter: 06/25/19 Time of Encounter: 08:25 H&P was reviewed. Patient was seen at bedside. Was called by the nurse the patient wants to leave AMA. Random see the patient and HIS concerns. As per records, patient had a PEG tube because of dysphagia. Patient tells me that he does not require PEG tube and he can eat easily. P atient got the bedside swelling evaluation which he passed. He wants to remove all his IV insulin at this point. They were removed. He wants to eat breakfast. Patient was ordered his home dose of insulin detemir and insulin lispro with a sliding scale along with a meal. He is out of DKA and gap closed anyway. Explained to the patient that going back to home have the danger of imminent deterioration of his health and he agreed to stay for today. Will esatrt on his home meds once recnciled. Diet cnsult Cont antobitics SW consult as the pt has medication problems and he is afraid that they will be stolen b the people where he lives.
[2019-06-25] MEDS ORDERED: Aminoglycoside Consult 1 EACH MC ONE (11:12)
--- NOTE | 2019-06-25 14:05 | Discharge Summary ---
Orders not resulted at time of discharge: Pending orders 06/24/19 15:57 Culture,Blood [] Stat Date of Encounter: 06/25/19 Time of Encounter: 08:30 - Discharge Diagnosis (1) DKA (diabetic ketoacidoses) Priority: Primary Status: Acute Qualifiers: Diabetes mellitus type: type 1 Diabetes mellitus complication detail: without coma Qualified Code(s): E10.10 - Type 1 diabetes mellitus with ketoacidosis without coma (2) Right upper lobe pneumonia Priority: Secondary Status: Acute Qualifiers: Pneumonia type: due to unspecified organism Qualified Code(s): J18.1 - Lobar pneumonia, unspecified organism (3) Sepsis Priority: Secondary Status: Acute Qualifiers: Sepsis type: sepsis due to unspecified organism Qualified Code(s): A41.9 - Sepsis, unspecified organism (4) Dysphagia Priority: Secondary Status: Chronic Qualifiers: Dysphagia type: unspecified Qualified Code(s): R13.10 - Dysphagia, unspecified (5) DVT prophylaxis Priority: Secondary Status: Acute Hospital course: Mr. Anand is a 43 year old male with a past medical history significant for diabetes mellitus type 2, dysphagia, presented to the hospital because of her glucose levels, nausea, vomiting, somnolence. Patient was diagnosed with DKA, started on insulin drip, Resolved, switched to basal bolus regimen. After that, patient wanted to leave AMA. Discussed with the patient that leaving AMA can put him in danger of further morbidity and can also result in worsening clinical status including . Initially he wanted to be started on the diet rather than being started on tube feeds because of the history of dysphagia. Bedside swallowing evaluation was done which was normal and he was given the diet but he was adamant to leave AMA. He was told that he also had pneumonia which is being treated with IV antibiotics. Went down to see the patient multiple times, had [id number] discussion with the patient multiple times, explaining the risks of leaving the hospital multiple times, but the patient was adamant to leave and finally he signed the papers and left AMA. This concerns the leaving AGAINST MEDICAL ADVICE was unclear, he said that he just does not want to stay in the hospital because he does not like the people and staff in the hospital. Regarding his pneumonia, patient got IV vancomycin, IV Zosyn, IV azithromycin while he was in the hospital. Sent the oral antibiotics to the patient's pharmacy including Augmentin and azithromycin for his pneumonia. - Time Spent with Patient Total time spent providing and/or coordinating discharge services: 55 minutes - Discharge Medications Prescriptions: New Amoxicillin/Clavulanate [Augmentin] 875 mg PO BIDWM 10 Days #20 tablet Azithromycin [Zithromax Tri-Eliazar] 500 mg PO DAILY 4 Days #4 tablet Continued Loperamide [Imodium] 2 mg PO Q4HR PRN PRN Reason: see instructions hydrOXYzine HCl [Hydroxyzine HCl] 25 mg PO Q8H PRN PRN Reason: withdrawals Acetaminophen [Non-Aspirin] 650 mg PO Q4H PRN PRN Reason: fever above 100 BuPROPion SR (12 HR) [Wellbutrin SR] 150 mg PO TID DULoxetine [Cymbalta] 30 mg PO DAILY Magnesium Hydroxide [Milk of Magnesia] 2,400 mg PO DAILY PRN PRN Reason: Constipation Enoxaparin [Lovenox] 40 mg SQ DAILY Ipratropium/Albuterol Neb [Duoneb] 3 ml IH [id number] PRN inhsol PRN Reason: Shortness Of Breath/Wheezing Lactulose 10 gm GTUBE BID udc Lansoprazole [Prevacid] 30 mg GTUBE QAM capsule. Metoclopramide [Reglan] 5 mg GTUBE Q6HR ud.liq Ondansetron [Zofran] 4 mg IVP Q6H PRN vial PRN Reason: Nausea And Vomiting Insulin DETEMIR [Levemir] 15 unit SQ QAM [id number] Sennosides/Docusate Sodium [Senna Plus] 1 each GTUBE BID tablet Discontinued Daptomycin [Cubicin Rf] 500 mg IV DAILY #20 vial Insulin LISPRO [HumaLOG] 10 units SQ Q4HR vial Home Medications: Acetaminophen [Non-Aspirin] 650 mg PO Q4H PRN 03/12/19 [History] BuPROPion SR (12 HR) [Wellbutrin SR] 150 mg PO TID 03/12/19 [History] DULoxetine [Cymbalta] 30 mg PO DAILY 03/12/19 [History] Enoxaparin [Lovenox] 40 mg SQ DAILY 03/12/19 [History] Loperamide [Imodium] 2 mg PO Q4HR PRN 03/12/19 [History] Magnesium Hydroxide [Milk of Magnesia] 2,400 mg PO DAILY PRN 03/12/19 [History] hydrOXYzine HCl [Hydroxyzine HCl] 25 mg PO Q8H PRN 03/12/19 [History] Insulin DETEMIR [Levemir] 15 unit SQ QAM [id number] 04/10/19 [Rx] Ipratropium/Albuterol Neb [Duoneb] 3 ml IH [id number] PRN inhsol 04/10/19 [Rx] Lactulose 10 gm GTUBE BID udc 04/10/19 [Rx] Lansoprazole [Prevacid] 30 mg GTUBE QAM capsule.dr 04/10/19 [Rx] Metoclopramide [Reglan] 5 mg GTUBE Q6HR ud.liq 04/10/19 [Rx] Ondansetron [Zofran] 4 mg IVP Q6H PRN vial 04/10/19 [Rx] Sennosides/Docusate Sodium [Senna Plus] 1 each GTUBE BID tablet 04/10/19 [Rx] Amoxicillin/Clavulanate [Augmentin] 875 mg PO BIDWM 10 Days #20 tablet 06/25/19 [Rx] Azithromycin [Zithromax Tri-Eliazar] 500 mg PO DAILY 4 Days #4 tablet 06/25/19 [Rx] Allergies/Adverse Reactions: Allergy/AdvReac Type Severity Reaction Status Date / Time No Known Allergies Allergy Verified 03/11/19 19:43 Date of admission: 06/24/19 19:53 Primary care physician: PCP NONE Consults: 06/25/19 08:08 Consult to Nutrition [CONS] Stat Comment: Consulting Provider: NUTRITION Reason for Dietary Consult: Tube Feed Start & Manage 06/25/19 09:18 Consult to [employer] [CONS] Routine Reason for SW Consult: Problem with the medications. 06/25/19 10:49 Consult to Speech Therapy [CONS] Routine Comment: Evaluate, develop and implement POC Reason for Consult: HX DYSPHAGIA. PATIENT HAS A PEG AND REPORTED THAT HE DOES NOT USE IT. Call Completed: Yes - Constitutional Vitals: Temp Pulse Resp BP Pulse Ox 97.7 F 79 16 119/82 95 06/25/19 07:27 06/25/19 08:00 06/25/19 09:45 06/25/19 09:45 06/25/19 09:45 General appearance: Present: A&O X 0, disheveled, mild distress. Absent: answers questions appropriately Exam: General: Alert and oriented, no physical distress, able to follow commands. Respiratory: Normal vesicular breathing, no added sounds, breathing equal in both sides. CVS: Normal heart sounds, no murmurs, no edema. Extremities: No peripheral edema, peripheral pulses intact. Lymph nodes: No lymphadenopathy Gastrointestinal: Soft, nontender abdomen, normal abdominal sounds. No distention noted. Genitourinary: No paravertebral tenderness. Neurological: Alert and oriented. No focal deficits. Cranial nerves II-XII intact. - Patient Status Disposition: Left Against Medical Advice Condition: Fair Functional capacity at discharge: independent ambulation Overall status at discharge: patient is not back to baseline - Discharge Instructions Follow Up With: NONE,PCP [Primary Care Provider] -
--- NOTE | 2019-06-25 16:34 | Electrocardiograph Report ---
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
== END 2019-06-25 11:13 | disposition left against medical advice (07) | DRG 720 ==
LOC: EMEROOARM 15:04 → SUATTDRO 19:53 → 2NNU 19:53
PROVIDERS: ADMIT Pediatrics; ATTEND Internal Medicine

== ENCOUNTER 2019-07-12 13:57 | Observation (INO) ==
[2019-07-12 16:00] LABS: Basophils # 0.1 K/mcL (0.0-0.2); Eosinophils # 0.2 K/mcL (0.0-0.6); Eosinophils % 2.6 %; Hematocrit 33.2 % (37.5-50.1); Hemoglobin 10.6 g/dL (12.9-16.9); Immature Granulocytes % 1.4 % (0-4); Lymphocytes # 1.1 K/mcL (0.6-4.6); Lymphocytes % 19.7 %; Mean Corpuscular HGB Conc 31.9 g/dL (31.6-35.5); Mean Corpuscular Hemoglobin 28.9 pg (28.0-33.3); Mean Corpuscular Volume 90.5 fL (83.0-100.0); Mean Platelet Volume 9.1 fL (9.4-12.4); Monocytes # 0.5 K/mcL (0.0-1.3); Neutrophils # 3.8 K/mcL (1.6-8.9); Platelet Count 190 K/mcL (140-400); Red Blood Count 3.67 M/mcL (4.19-5.50); Red Cell Distribution Width 15.9 % (11.5-14.5); Segmented Neutrophils % 66.3 %; White Blood Count 5.8 K/mcL (4.3-11.1)
[2019-07-12] MEDS ORDERED: Isovue-370 500 ML BOTTLE IVP ONE (16:07)
[2019-07-12 16:19] LABS: BUN/Creatinine Ratio 17 (6-26); Blood Urea Nitrogen 14 mg/dL (6-20); Calcium 8.9 mg/dL (8.6-10.3); Carbon Dioxide 26 mEq/L (23-29); Chloride 95 mEq/L (98-107); Glucose 515 mg/dL (70-105); Osmolality,Calculated 292 (280-300); Potassium 4.1 mEq/L (3.5-5.1); Sodium 129 mEq/L (136-145); eGFR For African Americans > 60 (> 60); eGFR For Non-African Americans > 60 (> 60)
[2019-07-12] MEDS ORDERED: Morphine Sulfate 2 MG/ML SYRINGE IVP ONE (17:18)
[2019-07-12] MEDS ORDERED: Cefepime HCl 1,000 MG in Water for inj. (sterile) 10 ML IVP STA (17:30)
[2019-07-12] MEDS ORDERED: 0.9 % Sodium Chloride 1,000 ML IVC ONE (17:31)
[2019-07-12] MEDS ORDERED: BuPROPion SR (12 HR) 150 MG TABLET PO STA (17:51)
[2019-07-12] MEDS ORDERED: Insulin LISPRO 300 UNITS/3 ML VIAL SQ STA (18:56)
[2019-07-12] MEDS ORDERED: Naloxone 0.4 MG/ML INJ IVP PRN ×2 (21:14→22:51)
[2019-07-12] MEDS ORDERED: Acetaminophen 325 MG TABLET PO PRN (21:14)
[2019-07-12] MEDS ORDERED: 0.9 % Sodium Chloride 1,000 ML IVC SCH (21:15)
[2019-07-12] MEDS ORDERED: Dextrose Gel 15 GM/37.5 ML TUBE PO PRN ×2 (21:17)
[2019-07-12] MEDS ORDERED: D5% in Water 1,000 ML IVC PRN (23:12)
[2019-07-12] MEDS ORDERED: *HR* Dextrose 50 % in Water (Syg) 50 ML SYRINGE IVP PRN (23:13)
[2019-07-12] MEDS ORDERED: Insulin DETEMIR 100 UNIT/ML X5UNITS SQ SCH (23:15)
[2019-07-12] MEDS: *HR* Heparin 5,000 UNIT/ML VIAL SQ SCH (23:37)
[2019-07-12] MEDS: BuPROPion SR (12 HR) 150 MG TABLET PO SCH (23:38)
[2019-07-12] MEDS: Ketorolac 30 MG/ML VIAL IVP PRN (23:38)
[2019-07-12] MEDS: Gabapentin 400 MG CAPSULE PO SCH (23:38)
[2019-07-13] MEDS: Insulin LISPRO 300 UNITS/3 ML VIAL SQ SCH ×9 (00:20→12:36)
[2019-07-13] MEDS ORDERED: *HR* LORazepam 2 MG/ML VIAL IVP ONE (04:59)
[2019-07-13] MEDS: *HR* Heparin 5,000 UNIT/ML VIAL SQ SCH ×2 (05:50→14:31)
[2019-07-13] MEDS: Piperacillin/Tazobactam 3.375 GM in 0.9 % Sodium Chloride Mini Bag 100 ML IVPB SCH ×2 (08:31→16:29)
[2019-07-13] MEDS: BuPROPion SR (12 HR) 150 MG TABLET PO SCH ×2 (08:31→16:28)
[2019-07-13] MEDS: Gabapentin 400 MG CAPSULE PO SCH ×3 (08:31→16:31)
[2019-07-13] MEDS: Ketorolac 30 MG/ML VIAL IVP PRN (08:36)
[2019-07-13 08:50] LABS: Hemoglobin 10.3 g/dL (12.9-16.9); Mean Corpuscular HGB Conc 32.2 g/dL (31.6-35.5); Mean Corpuscular Hemoglobin 28.9 pg (28.0-33.3); Mean Corpuscular Volume 89.9 fL (83.0-100.0); Mean Platelet Volume 8.9 fL (9.4-12.4); Platelet Count 164 K/mcL (140-400); Red Blood Count 3.56 M/mcL (4.19-5.50); White Blood Count 4.4 K/mcL (4.3-11.1)
[2019-07-13 08:59] LABS: INR 0.9; Prothrombin Time 10.7 Seconds (9.4-12.1)
[2019-07-13 09:02] LABS: Activated Partial Thrombo Time 31.7 Seconds (26.0-36.0)
[2019-07-13 09:14] LABS: Estimated Average Glucose 209 mg/dl
[2019-07-13 09:25] LABS: Alanine Aminotransferase 30 Units/L (7-52); Albumin 3.2 g/dL (3.5-5.7); Albumin/Globulin Ratio 1.8 (1.1-2.2); Alkaline Phosphatase 165 Units/L (34-104); Aspartate Amino Transferase 28 Units/L (13-39); BUN/Creatinine Ratio 23 (6-26); Bilirubin,Total 0.5 mg/dL (0.3-1.0); Blood Urea Nitrogen 12 mg/dL (6-20); Calcium 8.5 mg/dL (8.6-10.3); Carbon Dioxide 28 mEq/L (23-29); Chloride 106 mEq/L (98-107); Globulin 1.8 g/dL (2.4-3.5); Glucose 94 mg/dL (70-105); Osmolality,Calculated 290 (280-300); Potassium 3.7 mEq/L (3.5-5.1); Sodium 140 mEq/L (136-145); eGFR For African Americans > 60 (> 60); eGFR For Non-African Americans > 60 (> 60)
[2019-07-13] MEDS ORDERED: Gadolinium Contrast Agent (WT Based) IV PRN ×2 (10:15→20:43)
[2019-07-13] MEDS: *HR* FentaNYL (PF) 100 MCG/2 ML VIAL IVP PRN ×2 (12:15→16:37)
[2019-07-13] MEDS ORDERED: Aminoglycoside Consult 1 EACH MC ONE (14:43)
[2019-07-13] MEDS ORDERED: D5% in Water 1,000 ML IVC PRN ×3 (15:12→20:43)
[2019-07-13] MEDS ORDERED: Insulin LISPRO 300 UNITS/3 ML VIAL SQ SCH (18:00)
[2019-07-13] MEDS ORDERED: *HR* FentaNYL (PF) 100 MCG/2 ML VIAL ONE (18:46)
[2019-07-13] MEDS ORDERED: *HR* Propofol 200 MG/20 ML VIAL IVP ONE (18:46)
[2019-07-13] MEDS ORDERED: *HR* Midazolam HCl 2 MG/2 ML VIAL ONE (18:46)
[2019-07-13] MEDS ORDERED: *HR* Succinylcholine 200 MG/10 ML VIAL IVP ONE (18:52)
[2019-07-13] MEDS ORDERED: Ondansetron 4 MG/2 ML VIAL ONE (19:28)
[2019-07-13] MEDS ORDERED: Dexamethasone 4 MG/ML VIAL ONE (19:28)
[2019-07-13] MEDS ORDERED: *HR* PHENYLEPHRINE 1,000 MCG/10 ML SYRINGE IVP ONE (19:34)
[2019-07-13] MEDS ORDERED: Pregabalin 75 MG CAPSULE PO ONE (20:06)
[2019-07-13] MEDS ORDERED: cloNIDine HCl 0.1 MG TABLET PO ONE (20:06)
[2019-07-13] MEDS ORDERED: *HR* HYDROmorphone 2 MG/ML SYRINGE IVP PRN (20:07)
[2019-07-13] MEDS ORDERED: Ketorolac 30 MG/ML VIAL IVP PRN (20:43)
[2019-07-13] MEDS ORDERED: Dextrose Gel 15 GM/37.5 ML TUBE PO PRN ×2 (20:43)
[2019-07-13] MEDS ORDERED: *HR* FentaNYL (PF) 100 MCG/2 ML VIAL IVP PRN (20:43)
[2019-07-13] MEDS ORDERED: Acetaminophen 325 MG TABLET PO PRN (20:43)
[2019-07-13] MEDS ORDERED: *HR* Dextrose 50 % in Water (Syg) 50 ML SYRINGE IVP PRN (20:43)
[2019-07-13] MEDS ORDERED: Naloxone 0.4 MG/ML INJ IVP PRN ×2 (20:43)
[2019-07-13] MEDS ORDERED: BuPROPion SR (12 HR) 150 MG TABLET PO SCH (21:00)
[2019-07-13] MEDS ORDERED: Gabapentin 400 MG CAPSULE PO SCH (21:00)
[2019-07-13] MEDS ORDERED: *HR* Heparin 5,000 UNIT/ML VIAL SQ SCH (22:00)
[2019-07-13] MEDS ORDERED: flumazeniL 0.5 MG/5 ML VIAL IVP ONE (22:44)
[2019-07-13 22:49] LABS: Amphetamine Screen,Urine Negative ng/mL (Cutoff=1000); Barbiturate Screen,Urine Negative ng/mL (Cutoff=200); Benzodiazepines Screen,Urine Positive ng/mL (Cutoff=200); Cannabinoid Screen,Urine Negative ng/mL (Cutoff = 50); Cocaine Screen,Urine Negative ng/mL (Cutoff= 300); Opiate Screen,Urine Positive ng/mL (Cutoff=300); Phencyclidine Screen,Urine Negative ng/mL (Cutoff=25)
[2019-07-13 23:01] LABS: Basophils % 0.7 %; Red Cell Distribution Width 15.9 % (11.5-14.5)
[2019-07-13 23:03] LABS: Basophils # 0.1 K/mcL (0.0-0.2); Eosinophils % 0.5 %; Hematocrit 29.1 % (37.5-50.1); Hemoglobin 8.7 g/dL (12.9-16.9); Immature Granulocytes % 6.8 % (0-4); Immature Platelets 1.2 % (1.1-6.1); Lymphocytes % 41.1 %; Mean Corpuscular HGB Conc 29.9 g/dL (31.6-35.5); Mean Platelet Volume 10.4 fL (9.4-12.4); Monocytes # 0.5 K/mcL (0.0-1.3); Monocytes % 6.4 %; Nucleated Red Blood Cells 1.2 /100 WBC (0); Segmented Neutrophils % 44.5 %; White Blood Count 7.3 K/mcL (4.3-11.1)
[2019-07-13 23:04] LABS: Neutrophils # 3.3 K/mcL (1.6-8.9); Platelet Count 48 K/mcL (140-400)
[2019-07-13 23:21] LABS: Platelet Estimate Decreased (Normal)
[2019-07-14] MEDS ORDERED: Piperacillin/Tazobactam 3.375 GM in 0.9 % Sodium Chloride Mini Bag 100 ML IVPB SCH
[2019-07-14 06:24] VITALS: BP 89/53
[2019-07-14] MEDS ORDERED: flumazeniL 0.5 MG/5 ML VIAL IVP ONE ×2 (14:43)
[2019-07-14] MEDS ORDERED: *HR* Dextrose 50 % in Water (Syg) 50 ML SYRINGE IVC ONE (14:43)
[2019-07-14] MEDS ORDERED: *HR* EPINEPHrine 1 MG/10 ML SYRINGE IVP ONE ×2 (14:43)
== END 2019-07-14 14:44 | disposition expired ==
LOC: 3NENU 13:57 → EMEROOARM 13:57 → 3NENU 21:00
PROVIDERS: ADMIT Internal Medicine; ATTEND Internal Medicine